=== PATIENT | male | born 1975 | race Native Hawaiian/Other Pacific Islander ===

== ENCOUNTER 2017-06-04 10:49 | Emergency (ER) | payer OTHER ==
[2017-06-04] MEDS ORDERED: ZOFRAN ONE (11:09)
[2017-06-04] MEDS ORDERED: ZOFRAN IV ONE (11:17)
[2017-06-04] MEDS ORDERED: ASPIRIN PO ONE ×2 (11:23→18:35)
[2017-06-04] MEDS ORDERED: LACTATED RINGERS 1,000 ML IV ONE ×2 (11:46→14:39)
[2017-06-04 11:47] LABS: Basophils # (Auto) 0.1 K/mm3 (0.0-0.1); Basophils % (Auto) 0.5 % (0.0-1.8); Eosinophils # (Auto) 0.7 K/mm3 (0.0-0.4); Hematocrit 48.3 % (30.3-42.9); Hemoglobin 16.9 gm/dl (10.1-14.3); Lymphocytes # (Auto) 2.1 K/mm3 (1.2-5.4); Mean Corpuscular HGB Conc 35 % (30-34); Mean Corpuscular Hemoglobin 32 pg (28-32); Mean Corpuscular Volume 92 fl (79-97); Monocytes # (Auto) 0.7 K/mm3 (0.0-0.8); Monocytes % (Auto) 4.1 % (0.0-7.3); Red Blood Count 5.24 M/mm3 (3.65-5.03); Red Cell Distribution Width 13.7 % (13.2-15.2)
[2017-06-04 11:55] LABS: BUN/Creatinine Ratio 17; Blood Urea Nitrogen 10 mg/dL (7-17); Calcium 8.9 mg/dL (8.4-10.2); Hemolysis Index 7
[2017-06-04 11:56] LABS: INR 0.95 (0.87-1.13)
[2017-06-04 11:57] LABS: Albumin 3.9 g/dL (3.9-5); Bilirubin,Direct 0.2 mg/dL (0-0.2); Partial Thromboplastin Time 29.5 Sec. (24.2-36.6)
[2017-06-04 12:29] LABS: Platelet Count 147 K/mm3 (140-440)
[2017-06-04] MEDS ORDERED: ANTIVERT PO ONE (12:41)
--- NOTE | 2017-06-04 14:01 | Cat Scan Report ---
FINAL REPORT EXAM: CT HEAD/BRAIN WO CON HISTORY: headache, weakness, high bp TECHNIQUE: CT examination of the head without IV contrast PRIORS: None. FINDINGS: No acute air-fluid level visualized in the included air-filled sinuses. Bone windows demonstrate no acute fracture. The brain is without hemorrhage. There is no extra-axial intracranial bleed, brain bleed, or midline shift. The ventricles and sulci are age-appropriate. A small region of nonspecific hypodensity is present in the right parieto-occipital watershed region measuring approximately 14 x 33 mm. No adjacent mass effect. This may be ischemia or ischemic infarct. IMPRESSION: Brain hypodensity in the right parieto-occipital watershed region may be ischemia or ischemic infarct. Differential includes nonspecific edema from small underlying mass or infection. Recommend followup brain MRI, with IV contrast if possible, to further characterize. 06/04/2017 at 1:46 p.m. EST: I discussed the findings and MRI follow-up recommendation over the phone with Dr. Puentes. He reports the patient's headache is right-sided and the patient has experienced vomiting
--- NOTE | 2017-06-04 14:25 | Cat Scan Report ---
FINAL REPORT EXAM: CT ABDOMEN PELVIS W CON HISTORY: vomiting, hypertension TECHNIQUE: CT examination of the ABDOMEN after IV contrast CT examination of the PELVIS after IV contrast PRIORS: None. FINDINGS: Smoothly marginated nonspecific small sclerotic foci in the bilateral femoral heads may be bone islands. Nonspecific diffusely decreased density of liver parenchyma may reflect fatty infiltration. No visualized focal liver lesion. There is focal fatty sparing adjacent to the gallbladder fossa. Normal-appearing gallbladder, adrenals, pancreas, and spleen. Intact normal caliber abdominal aorta and IVC. No retroperitoneal adenopathy. No evidence of mesenteric mass. Normal-appearing right kidney and bilateral ureters. Nonspecific 11 mm hypodensity is present in the central lateral left kidney parenchyma. Another similar focus measures 16 mm in the posterolateral lower pole region of the left kidney. These may be renal cysts. Margins are ill-defined raising suspicion of pyelonephritis. No perinephric fat stranding. No left hydronephrosis. No left renal calculus. Normal-appearing stomach and duodenum. No small bowel distention in the abdomen and pelvis. No pelvic free fluid. Normal-appearing urinary bladder, prostate, seminal vesicles, and rectum. Normal-appearing sigmoid colon. No gross ascites, free air, or colonic distention. Normal-appearing cecum and terminal ileum. Appendix not visualized. Surgical clips are noted in the pericecal region possibly from prior appendectomy. IMPRESSION: Nonspecific 2 small regions of hypodensity are noted in the central and lower left kidney possibly representing atypical or complex cysts. Differential includes areas of edema, inflammation, or pyelonephritis, in the appropriate clinical setting. No evidence of obstructive uropathy or calculus Suggestion of mild hepatic steatosis
[2017-06-04 14:36] LABS: Bilirubin,Urine NEG (Negative); Blood,Urine NEG (Negative); Color,Urine Yellow (Yellow); Mucus,Urine FEW /HPF; Nitrite,Urine NEG (Negative); Urobilinogen,Urine < 2.0 mg/dL (<2.0)
[2017-06-04 14:39] LABS: Protein,Urine >500 mg/dL (Negative)
[2017-06-04] MEDS ORDERED: ZOFRAN IV NR (17:00)
--- NOTE | 2017-06-04 17:55 | Magnetic Resonance Report ---
FINAL REPORT EXAM: MR BRAIN WO/W CON HISTORY: abnormal ct TECHNIQUE: Multiplanar multisequence brain MR imaging before and after IV contrast. PRIORS: Head CT 06/04/2017 FINDINGS: In the region of CT hypodensity, in the right posterior right temporal lobe/anterior right occipital lobe, there is restricted diffusion suggesting ischemia and/or ischemic infarct. Similar restricted diffusion signal is present in the left cerebellar vermis and medial left cerebellar hemisphere. Corresponding T1 hypointensity and FLAIR/T2 hyperintensity suggests lesions are at least 16 hours old. The lesions do not enhance with IV contrast. No MRI evidence of underlying mass or infection. The included air filled sinuses contain no acute fluid level. The brain is without mass or hemorrhage. There is no midline shift. The ventricles and sulci are age-appropriate. No abnormal IV contrast enhancement is visualized. IMPRESSION: Bilateral lesions demonstrate restricted diffusion suggestive acute to subacute ischemia and/or ischemic infarcts. Right-sided lesion is in the posterior temporal/anterior occipital region and left-sided lesion is in the medial left cerebellum and left cerebellar vermis. Corresponding T1 and T2 signal abnormality suggest lesions are at least 16 hours old
--- NOTE | 2017-06-04 18:07 | Emergency Department Report ---
HPI - General Chief Complaint: Nausea/Vomiting/Diarrhea Time Seen by Provider: 06/04/17 11:43 - HPI HPI: 22-year-old male presents the ED, with severe dizziness, nausea, vomiting. Patient with history of high blood pressure that he is compliant with medication. Patient denies any focal weakness, no chest pain, no shortness of breath, no diaphoresis. Patient states symptoms started around 11:00 after eating some chicken. Initially thought it was something that he ate but symptoms continued to worsen so he presented to ED. ED Past Medical Hx - Past Medical History Previous Medical History?: Yes Hx Hypertension: Yes (No Rx) - Surgical History Past Surgical History?: Yes Hx Appendectomy: Yes - Social History Smoking Status: Never Smoker Substance Use Type: None ED Review of Systems ROS: Stated complaint: N/V Other details as noted in HPI Constitutional: no symptoms reported Gastrointestinal: nausea, vomiting Musculoskeletal: back pain Physical Exam - Physical Exam Vital Signs: Vital Signs 06/04/17 11:18 Temperature 98.2 F Pulse Rate 97 H Respiratory 20 Rate Blood Pressure 185/116 [Right] O2 Sat by Pulse 99 Oximetry Physical Exam: Gen. alert and oriented 3 in no distress Head atraumatic normocephalic Eyes PERR LA EOMI Chest regular rate and rhythm normal S1-S2 lungs clear bilaterally Abdomen soft nondistended Back no point tenderness paravertebral tenderness Neuro extremely dizzy upon standing, no upper extremity weakness, no lower extremity weakness. - Assessment Assessment Interval: Baseline - Level of Consciousness 1a. Level of Consciousness: alert - LOC Questions 1b. LOC Questions: answers correctly - LOC Command 1c. LOC Commands: performs tasks correctly - Best Gaze 2. Best Gaze: normal - Visual 3. Visual: no visual loss - Facial Palsy 4. Facial Palsy: normal symmetrical movement - Motor Arm 5b. Motor Arm Right: no drift 5a. Motor Arm Left: no drift - Motor Leg 6a. Motor Leg Left: no drift 6b. Motor Leg Right: no drift - Limb Ataxia 7. Limb Ataxia: absent - Sensory 8. Sensory: normal - Best Language 9. Best Language: no aphasia - Dysarthria 10. Dysarthria: normal - Extinction and Inattention 11. Extinction/Inattention: no abnormality - Scoring Total Score: 0 Stroke Severity: No Stroke Symptoms Psych normal mood. ED Course Vital Signs 06/04/17 11:18 Temperature 98.2 F Pulse Rate 97 H Respiratory 20 Rate Blood Pressure 185/116 [Right] O2 Sat by Pulse 99 Oximetry - Reevaluation(s) Reevaluation #1: 06/04/17 18:32 42-year-old with acute CVA, no neurology personnel technician here at [facility]. Due to the patient's young age, the family feels more comfortable in the place where there is neurology available. As spoken with Dr. Tommie Elizabeth , neuro ICU personnel technician accepted patient for transfer for acute CVA ED Medical Decision Making - Lab Data Result diagrams: 06/04/17 11:23 06/04/17 11:23 Critical care attestation.: If time is entered above; I have spent that time in minutes in the direct care of this critically ill patient, excluding procedure time. ED Disposition Clinical Impression: Acute CVA (cerebrovascular accident) Disposition: [id number]/TX-[id number] ANOTHER TYPE [facility] Is pt being admited?: No Does the pt Need Aspirin: No Condition: Stable Referrals: PRIMARY CARE, [Primary Care Provider] - 3-5 Days
[2017-06-04] MEDS ORDERED: ASPIRIN ONE (18:36)
[2017-06-04 19:30] VITALS: BP 165/95
== END 2017-06-04 19:43 | disposition other institution (70) ==
LOC: EDSEX → ED 10:49
DX: I63.9 Cerebral infarction, unspecified (principal); I10 Essential (primary) hypertension; Z90.49 Acquired absence of other specified parts of digestive tract
CPT/HCPCS: 36415; 70450; 70553; 74177; 80048; 80074; 81001; 82140; 82805; 84484; 85025; 85610; 85730; 93005; 93010; 96361; 96374; 96376; 99284; A9577; J2405; J7120; Q9967